=== PATIENT | female | born 1990 | race Caucasian/White ===

== ENCOUNTER 2018-12-02 07:46 | Inpatient (IN) | payer MEDICAID ==
[~2018-12-02] VITALS: Ht 147.3 cm; Wt 67.1 kg
[~2018-12-02 07:46] MED LIST: OXYTOCIN 30 UNITS/LR 500 ML BAG IV ONE; PREN-19 PO
[2018-12-02 08:10] VITALS: Ht 147.3 cm; Wt 67.1 kg
[2018-12-02 08:11] VITALS: BP 108/58; PULSE 111; RESP 18
[2018-12-02] MEDS ORDERED: LACTATED RINGER'S 1,000 ML IV SCH (08:25)
[2018-12-02] MEDS ORDERED: METHYLERGONOVINE 0.2 MG INJ IM PRN ×2 (08:30→18:00)
[2018-12-02] MEDS ORDERED: OXYTOCIN 30 UNITS/LR 500 ML IV PRN ×2 (08:30→18:00)
[2018-12-02] MEDS ORDERED: MISOPROSTOL 200 MCG TAB PR PRN ×2 (08:30→18:00)
[2018-12-02] MEDS ORDERED: OXYTOCIN 30 UNITS/LR 500 ML IV SCH ×2 (08:30→17:52)
[2018-12-02] MEDS ORDERED: CEFAZOLIN 2 GM/50 ML (PMX) 50 ML IVPB SCH (08:30)
[2018-12-02] MEDS ORDERED: CARBOPROST 250 MCG INJ IM PRN ×2 (08:30→18:00)
--- NOTE | 2018-12-02 08:32 | TRIAGE ---
OB Triage Datetime Report Generated by CPN: 12/02/2018 08:31 Datetime: 12/02/2018 08:05 Assessment Type: Triage Maternal Assessment Level of Consciousness: Fully Conscious DTR's/Clonus: DTRs 2+; No Clonus Headache: Denies Blurred Vision: No Respiratory Effort: Unlabored; Regular Rhythm; Equal Expansion Breath Sounds, Left: Clear and Equal Breath Sounds, Right: Clear and Equal Nausea/Vomiting: Denies RUQ Epigastric Pain: Denies Lower Extremities Edema: Bilateral Lower Extremities Degree: Trace Upper Extremities Edema: None Degree: None Facial Edema: None Fall Risk Assessment History of Falling: (0) No Secondary Diagnosis: (0) No Ambulatory Aid: (0) Bedrest/Nurse Assist IV Therapy: (0) No Gait: (0) Normal/Bedrest/Immobile Mental Status: (0) Oriented to Own Ability Fall Score: 0 Fall Risk Score Definition: No Risk: No action required Datetime: 12/02/2018 08:02 Time of Arrival: 12/02/2018 07:43 EGA: 39.1 Arrived By: Ambulatory Arrived From: Home Chief Complaint: PT HERE FOR EFW/MAYANK FOR POSSIBLE IUGR Movement: Present Contractions: Denies/Absent Rupture of Membranes: Denies Vaginal Bleeding: None Vaginal Discharge: Present Recent Sexual Intercouse: Denies Abdominal Trauma: Not Applicable Patient Complaints: None Time Provider Notified: 12/02/2018 08:15 Provider Notified: HADADIAN Initial Plan: NST/ Datetime: 12/02/2018 07:59 Monitor Mode: External Monitor Mode: External US Datetime: 11/25/2018 00:52 Labor Evaluation Frequency: x5 Monitor Mode: External Duration (sec)2399: 50-120 Quality: Mild Pattern: Normal: <= 5 Contractions in 10 Minutes Resting Tone [place]: Relaxed Heart Rate FHR Baseline Rate: 135 Monitor Mode: External US Variability: Moderate 6-25 bpm Accelerations: 15X15 Decelerations: None Category: Category I Datetime: 11/25/2018 00:00 Labor Evaluation Frequency: Irregular Monitor Mode: External Resting Tone [place]: Relaxed Heart Rate FHR Baseline Rate: 135 Monitor Mode: External US Variability: Moderate 6-25 bpm Accelerations: 15X15 Decelerations: None Category: Category I Datetime: 11/24/2018 23:00 Labor Evaluation Frequency: 2-7 Monitor Mode: External Duration (sec)2399: 50-100 Quality: Mild Pattern: Normal: <= 5 Contractions in 10 Minutes Resting Tone [place]: Relaxed Heart Rate FHR Baseline Rate: 135 Monitor Mode: External US Variability: Moderate 6-25 bpm Accelerations: 15X15 Decelerations: None Category: Category I Datetime: 11/24/2018 22:00 Labor Evaluation Frequency: Irregular Monitor Mode: External Resting Tone [place]: Relaxed Datetime: 11/24/2018 21:00 Labor Evaluation Frequency: Irregular Monitor Mode: External Resting Tone [place]: Relaxed Heart Rate FHR Baseline Rate: 135 Monitor Mode: External US Variability: Moderate 6-25 bpm Accelerations: Prolonged Decelerations: None Category: Category I Datetime: 11/24/2018 20:00 Labor Evaluation Frequency: 3-6 Monitor Mode: External Duration (sec)2399: 80-140 Quality: Mild Pattern: Normal: <= 5 Contractions in 10 Minutes Resting Tone [place]: Relaxed Heart Rate FHR Baseline Rate: 135 Monitor Mode: External US Variability: Moderate 6-25 bpm Accelerations: 15X15 Decelerations: None Category: Category I Datetime: 11/24/2018 18:36 EGA: 38.0 Datetime: 11/24/2018 18:25 Fall Score: 0 Fall Risk Score Definition: No Risk: No action required
--- NOTE | 2018-12-02 11:23 | PREAC ---
Date/Time of Note Date/Time of Note DATE: 12/02/18 TIME: 11:21 Anesthesia Eval and Record Evaluation Time Pre-Procedure Interview DATE: 12/02/18 TIME: 11:21 Age 28 Sex female NPO: 8 hrs Preoperative diagnosis IUP Planned procedure Csection Past Medical History Past Medical History: None Surgery & Anesthesia Issues No known issue Meds Anticoagulation: No Beta Eden within 24 hr: No Reason Beta Eden not given: Pt. not on B-Eden Reported Medications Vit #76/Iron,Carb/FA (Prenatabs Rx Tablet) 1 Each Tablet, 1 EACH PO, TAB 11/24/18 Current Medications Lactated Ringer's 1,000 ml @ 125 mls/hr Q8H IV Last administered on 12/02/18at 10:28; Admin Dose 125 MLS/HR; Start 12/02/18 at 08:25 Cefazolin Sodium/ Dextrose 50 ml @ 100 mls/hr ONCE IVPB ; Start 12/02/18 at 08:30 Oxytocin/Lactated Ringer's 500 ml @ 125 mls/hr POST IV ; Start 12/02/18 at 08:30 Oxytocin/Lactated Ringer's 500 ml @ 0 mls/hr ONCE PRN IV VAGINAL BLEEDING; Start 12/02/18 at 08:30 Methylergonovine Maleate (Methergine) 0.2 mg ONCE PRN IM VAGINAL BLEEDING; Start 12/02/18 at 08:30 Carboprost Tromethamine (Hemabate) 250 mcg ONCE PRN IM VAGINAL BLEEDING; Start 12/02/18 at 08:30 Misoprostol (Cytotec) 1,000 mcg ONCE PRN AK VAGINAL BLEEDING; Start 12/02/18 at 08:30 Meds reviewed: Yes Allergies Coded Allergies: No Known Allergy (Unverified , 11/24/18) Allergies Reviewed: Yes Labs/Studies Labs Reviewed: Reviewed by anesthesiologist Result Diagram: 12/02/18 0900 Laboratory Tests 12/02/18 09:00 Blood Bank Test 12/02/18 09:00 Antibody Screen NEGATIVE Blood Type O POSITIVE Rh Immune Globulin Candidate NO test: Positive Studies: ECG Pre-procedure Exam Last vitals Vital Signs Date Temp Pulse Resp B/P (MAP) Pulse Ox O2 O2 Flow FiO2 Time Delivery Rate 12/02/18 98.6 111 18 108/58 Room Air 08:11 (75) Airway: Adequate mouth opening, Adequate thyromental dist Mallampati: Mallampati II Teeth: Normal Lung: Normal Heart: Normal ASA Physical Status ASA physical status: 2 Emergency: None Planned Anesthetic Neuraxial: Epidural Planned Pain Management Sub-arachniod narcotics, Parenteral pain med Pre-operative Attestations Prior to commencing anesthesia and surgery, the patient was re-evaluated, there was verification of: *The patient's identity *The results of appropriate recent lab work and preoperative vital signs *The above evaluation not changing prior to induction *Anesthetic plan, risk benefits, alternative and complications discussed with patient/family; questions answered; patient/family understands, accepts and wishes to proceed. MIGUEL PALMER MD Dec 02, 2018 11:23
[2018-12-02] MEDS ORDERED: PHENYLephrine (100 MCG/ML) 10ML SYG ONE (12:16)
[2018-12-02] MEDS ORDERED: ONDANSETRON 4 MG INJ ONE (12:17)
[2018-12-02] MEDS ORDERED: OXYTOCIN 10 UNIT INJ ONE (12:17)
[2018-12-02] MEDS ORDERED: morphine SULFATE/PF (10 MG/10 ML) INJ ONE (12:17)
--- NOTE | 2018-12-02 12:42 | HP ---
Date/Time of Note Date/Time of Note DATE: 12/02/18 TIME: 12:34 OB - History Hx of Present Free Text/Dictation 28 years old with 2 previous delivery at 39 weeks and 1 day with a KRIS of 12/08/2018 complaining of uterine contractions. She is desiring a repeat delivery and permanent surgical sterilization. she states good movement. She denies nausea, vomiting, shortness of breath, chest pain, headache, visual changes, vaginal bleeding or LOF. Chief Complaint: Uterine contractions Last Menstrual Period: Mar 03, 2018 Estimated Due Date: Dec 08, 2018 : 3 Para: 2 Spontaneous : 0 Therapeutic : 0 Care: Limited Care Ultrasounds: Other (30 trimester ultrasound) Obstetrical Complications: None Medical Complications: None Past Family/Social History * Past Medical, Surgical, Family and Obstetric Histories reviewed from chart. Blood Type: O+ Rubella: immune RPR/VDRL: Negative GBS Status: Negative HBsAG: Negative OB Admission Exam Vital Signs Vital Signs Vital Signs Date Temp Pulse Resp B/P (MAP) Pulse Ox O2 O2 Flow FiO2 Time Delivery Rate 12/02/18 98.6 111 18 108/58 Room Air 08:11 (75) Physical Exam HEENT: WNL Heart: Rhythm Normal Lungs: Clear Abdomen: WNL Extremities: Normal Cervical Dilatation: 1cm Effacement: 75% Station: -2 Membranes: Intact Heart Rate: 140's Accelerations: Accelerations Present Decelerations: No Decelerations Varibility: Moderate Contractions on Admission: < 5 Minutes Apart Intensity: Moderate Last 72 hours Lab Results CBC & BMP 12/02/18 09:00 OB Assessment/Plan Other plan: 28 years old 3 para 2002 with 2 previous delivery at 39 weeks and 1 day in early labor desiring repeat delivery and bilateral tubal ligation. - FHR: No sign of metabolic acidosis- Category I - Continuous EFM, toco - CBC, blood type and screen - Please see the orders - O+/Rubella: Immune - GBS: negative The risk of delivery including but not limited to bleeding, infection, injury to other organs (bowel, bladder, ureter, vessels, nerves), injury to fetus, blood transfusion, blood transfusion related infection, risk of anesthesia, adhesion, needs for future , removal of uterus or any other indicated surgery, permanent surgical sterilization, other contraceptive options including IUD, increased risk of ectopic if failure of procedure occurs was discussed with the patient and her family. She expressed understanding. All of her questions were answered. She signed the informed consent. PHYSICIAN'S VERIFICATION OF INFORMED CONSENT The patient was counseled regarding the procedure, its indications, risks, potential complications and alternatives and any questions were answered. Consent was obtained. PLANNED PROCEDURE/TREATMENT: delivery with possible using vacuum/forceps, bilateral tubal ligation/bilateral salpingectomy and any other indicated surgery PHYSICIAN'S VERIFICATION OF INFORMED CONSENT FOR BLOOD TRANSFUSION: There is a reasonable possibility that blood transfusion will be necessary as a result of the patient's procedure. I have discussed the following with the patient/patient's legal it sales representative: An explanation of the benefits and risks of the transfusion of blood or blood products and the possible alternatives. All questions have been answered to the patient's satisfaction. INFORMED CONSENT:The patient has been informed of: The nature of the proposed care, treatment, services, medications, interventions or procedures. Potential benefits, risks or side effects, including potential problems related to recuperation. The likelihood of achieving care treatment and service goals. Reasonable alternatives to the proposed care, treatment and service. The relevant risks, benefits and side effects related to alternatives, including the possible results of not receiving care, treatment and services. When indicated, any limitations on the confidentiality of information learned from or about the patient. If appropriate, the risks, benefits and alternatives of the drugs to be used for sedation/analgesia including moderate sedation. If appropriate, patient has been provided information on the risks, benefits and alternatives to the transfusion of blood and/or blood products. If appropriate, patient has been provided information regarding the [place] [place] Blood Act. NHUNG LOPEZ Dec 02, 2018 12:42
[2018-12-02] MEDS ORDERED: DIPHENHYDRAMINE 50 MG INJ ONE (13:56)
--- NOTE | 2018-12-02 14:10 | PAC ---
Date/Time of Note Date/Time of Note DATE: 12/02/18 TIME: 14:09 Post-Anesthesia Notes Post-Anesthesia Note Last documented vital signs Vital Signs Date Temp Pulse Resp B/P (MAP) Pulse Ox O2 O2 Flow FiO2 Time Delivery Rate 12/02/18 98.6 111 18 108/58 Room Air 08:11 (75) Activity: WNL Respiratory function: WNL Cardiovascular function: WNL Mental status: Baseline Pain reasonably controlled: Yes Hydration appropriate: Yes Nausea/Vomiting absent: Yes Comments BP:108/68, pulse:78, spo2:100%, T:98,8 MIGUEL PALMER MD Dec 02, 2018 14:10
[2018-12-02] MEDS ORDERED: ONDANSETRON 4 MG INJ IV PRN (14:30)
[2018-12-02] MEDS ORDERED: NALOXONE (0.4 MG/ML) INJ IV PRN (14:30)
[2018-12-02] MEDS ORDERED: KETOROLAC 30 MG INJ IV PRN (14:30)
[2018-12-02] MEDS ORDERED: morphine 2 MG INJ IV PRN (14:30)
[2018-12-02] MEDS ORDERED: METHYLERGONOVINE 0.2 MG TAB PO PRN (18:00)
[2018-12-02] MEDS ORDERED: LANOLIN HPA 1 PKT TOP PRN (18:00)
[2018-12-02 18:30] VITALS: BP 100/50; PULSE 85; RESP 18
[2018-12-02 18:54] VITALS: BP 103/56; PULSE 74; RESP 18
[2018-12-02 20:15] VITALS: BP 98/56; PULSE 73; RESP 18
[2018-12-02] MEDS: SENNA/DOCUSATE NA (8.6MG/50MG) TAB PO SCH (21:17)
[2018-12-02] MEDS: IBUPROFEN 800 MG TAB PO SCH (21:17)
[2018-12-02] MEDS: DEXTROSE 5%-LR 1,000 ML IV SCH (22:02)
[2018-12-03] VITALS: BP 100/51; PULSE 62; RESP 18
[2018-12-03] MEDS: DIPHENHYDRAMINE 50 MG INJ IV PRN ×2 (00:22→09:09)
--- NOTE | 2018-12-03 00:30 | OPR ---
Operative Report Planned Procedure Free Text/Dictation Late entry note. Delivery time13:01 Procedure date Dec 03, 2018 Procedure(s) 1. Repeat low transverse delivery 2. Bilateral tubal ligation-[place] procedure 3. Removal of left paratubal cyst 4. Lysis of adhesion Performed by see signature line Manufacturing Mechanic: JOSE JOHNSON MD Anesthesiologist: MIGUEL PALMER MD Pre-procedure diagnosis 28 years old with 2 previous delivery at 39 weeks and 1 day desiring repeat delivery and permanent surgical sterilization [id number] Anesthesia Type: [id number] spinal Post-Procedure Post-procedure diagnosis 1. 28 years old with 2 previous delivery at 39 weeks and 1 day desiring repeat delivery and permanent surgical sterilization 2. Multiple omental adhesion to the peritoneum. 3. Left paratubal cyst 4. 3 cm window at right side of lower uterine segment Findings 1. Normal uterus, except that there was a 3 cm window at the right side of lower uterine segment. Normal fallopian tubes and ovaries 2. Viable female in cephalic presentation. 8 at one minute and 9 in 5 minutes. Weight: 2855 g - 6 pound 5 ounces. Height 18.5 inches. Time of delivery: 13:01 3. Placenta with three vessel cord 4. Amniotic fluid - Clear Estimated Blood Loss: 500 - 600 mls Specimen(s) 1. Segment of left and right fallopian tube 2. Left paratubal cyst Grafts/Implant(s) none Complication(s) none Pt Condition post procedure: stable Disposition: PACU Procedure Description INDICATION AND HISTORY: A 28 years old with 2 previous delivery at 39 weeks and 1 day desiring repeat delivery and permanent surgical sterilization. The risk of delivery including but not limited to bleeding, infection, injury to other organs (bowel, bladder, ureter, vessels, nerves), injury to fetus, blood transfusion, blood transfusion related infection, risk of anesthesia, adhesion, needs for future , removal of uterus or any other indicated surgery, permanent surgical sterilization, other contraceptive options including IUD, increased risk of ectopic if failure of procedure occurs discussed with the patient and her family. She expressed understanding. All of her questions were answered. She signed the informed consent. DESCRIPTION OF OPERATION: The patient was taken to the operating room, where she was identified and the procedure was verified. The patient received two gram of Ancef 30 minutes prior to surgery. Spinal anesthesia was placed. The patient placed in the dorsal supine position with a left tilt. The heart rate was 130 bpm. The patient was then prepped and draped in the normal sterile fashion. A Pfan nenstiel skin incision was made and carried down to the fascia with knife. The fascia was incised in the midline and the fascial incision was carried laterally with Winkler scissors. The superior portion of the fascial incision was then grasped with Analilia clamps and tented up and dissected off the underlying rectus muscle with sharp dissection. The lower portion of the fascial incision was then made in a similar fashion. The rectus muscle was and the peritoneum was entered. There was multiple area of adhesion of omentum to peritoneum which was clamped cauterized and cut. The peritoneal incision was then stretched and an Mohsen retractor was inserted. As noted above there was a window at right side of lower uterine segment, an incision was made above the lower uterine segment in a transverse fashion with a knife and extended bluntly. The was delivered atraumatically in cephalic presentation with the above findings. The umbilical cord was clamped and cut. The neonatology resuscitation team was present and the baby was handed to them. A cord blood sample was obtained for further evaluation. The placenta and membrane, which appeared normal were Removed. The uterus was exteriorized and cleared of all clot and debris. The uterus was then closed in a two layer fashion with 0- Monocryl. At the time of closure, hemostasis was noted. Then the left fallopian tube was identified and was grasped using [place] clamp, segment of distal fallopian tube including fimbria was double ligated with O- plain, excised and sent to pathology. Same procedure repeated at the right side. Hemostasis of stump of both fallopian tube reassured.there was a 1 x 1.5 cm left paratubal tubal cyst which cauterized and cut. The gutters were irrigated. The peritoneum was reapproximated with 3-0 Vicryl. The muscle was reapproximated with 3-0 Vicryl. The fascia was approximated with 0-Vicryl in a running fashion. The subcutaneous tissue was re approximated with 3-0 vicryl. The skin was closed with 4-0 Monocryl. All instruments, sponges and needle counts were correct x3. The patient tolerated the procedure well. She transferred to the recovery room in stable condition. NHUNG LOPEZ Dec 03, 2018 00:29
[2018-12-03 03:50] VITALS: BP 91/50; RESP 18
[2018-12-03] MEDS: IBUPROFEN 800 MG TAB PO SCH ×3 (06:02→21:27)
[2018-12-03] MEDS: DEXTROSE 5%-LR 1,000 ML IV SCH ×3 (06:02→17:52)
[2018-12-03 08:15] VITALS: BP 94/49; PULSE 64; RESP 18
[2018-12-03] MEDS ORDERED: DIPHTH/TET/ACEL PERTUSS (ADULT) 0.5 ML VIAL IM* ONE (11:00)
[2018-12-03] MEDS ORDERED: HYDROCODONE/APAP (5/325) TAB NGT PRN (11:00)
--- NOTE | 2018-12-03 14:12 | PN ---
Date/Time of Note Date/Time of Note DATE: 12/03/18 TIME: 14:10 OB Subjective Subjective Subjective Patient has not passed flatus yet. Denies any nausea vomiting. Has not ambu lated yet. Is in bed. Has been tolerated clear liquid diet. Breast-feeding. Denies any complaint. OB Objective Objective Objective General appearance: Alert and oriented x4 does not appear to be in any acute distress Abdomen: Soft, appropriate tenderness in the incision. Incision: Clean dry and intact Lungs: Clear to auscultation bilaterally CV: RRR Extremities: No calf tenderness, no click no cord palpable Breast: No evidence of mastitis or fissure Laboratory Tests Test 12/02/18 08:25 12/02/18 09:00 12/03/18 06:37 12/03/18 07:22 Hepatitis B NEGATIVE Surface Antigen Hepatitis C NEGATIVE Antibody HIV (1&2) NEGATIVE Antibody White Blood 13.1 10^3/ul 12.2 10^3/ul Count Red Blood Count 3.95 10^6/ul 3.97 10^6/ul Hemoglobin 11.4 g/dl 11.4 g/dl Hematocrit 34.1 % 34.4 % Mean Corpuscular 86.3 fl 86.6 fl Volume Mean Corpuscular 28.9 pg 28.7 pg Hemoglobin Mean Corpuscular 33.4 g/dl 33.1 g/dl Hemoglobin Pebbles nt Red Cell 13.0 % 13.1 % Distribution Width Platelet Count 390 10^3/UL 374 10^3/UL Mean Platelet 9.5 fl 9.9 fl Volume Immature 0.700 % 0.700 % Granulocytes % Neutrophils % 67.7 % 69.5 % Lymphocytes % 19.6 % 18.1 % Monocytes % 8.1 % 8.8 % Eosinophils % 3.7 % 2.7 % Basophils % 0.2 % 0.2 % Nucleated Red 0.0 /100WBC 0.0 /100WBC Blood Cells % Immature 0.090 10^3/ul 0.080 10^3/ul Granulocytes # Neutrophils # 8.9 10^3/ul 8.5 10^3/ul Lymphocytes # 2.6 10^3/ul 2.2 10^3/ul Monocytes # 1.1 10^3/ul 1.1 10^3/ul Eosinophils # 0.5 10^3/ul 0.3 10^3/ul Basophils # 0.0 10^3/ul 0.0 10^3/ul Nucleated Red 0.0 10^3/ul 0.0 10^3/ul Blood Cells # Prothrombin Time 12.2 Sec Prothrombin Time 1.0 Ratio INR 0.89 International Normalized Ratio Activated 27.7 Sec Partial Thrombop last Time Rapid Plasma NONREACTIVE Reagin Lab Scanned REFERENCE Report LAB [id number] OB Assessment/Plan Other Assessment: Status post repeat section+ BTL Postoperative day #1 Doing well Leukocytosis, improving, likely reactive related to postop Encourage the patient ambulating. GHAZALA Asher Advance diet Incentive spirometer discussed Routine postop care NICOLE HERNANDEZ MD Dec 03, 2018 14:12
[2018-12-03] MEDS: SENNA/DOCUSATE NA (8.6MG/50MG) TAB PO SCH ×2 (14:56→21:27)
[2018-12-03] MEDS: HYDROCODONE/APAP (5/325) TAB GTB SCH ×2 (14:56→21:27)
[2018-12-03 15:30] VITALS: BP 99/63; PULSE 79; RESP 18
[2018-12-03 20:00] VITALS: BP 112/67; PULSE 77; RESP 16
[2018-12-04 04:00] VITALS: BP 102/61; PULSE 59; RESP 18
[2018-12-04] MEDS: IBUPROFEN 800 MG TAB PO SCH ×3 (05:48→21:33)
[2018-12-04] MEDS: HYDROCODONE/APAP (5/325) TAB GTB SCH ×3 (05:48→21:33)
[2018-12-04 08:15] VITALS: BP 105/53; PULSE 65; RESP 20
[2018-12-04] MEDS: SENNA/DOCUSATE NA (8.6MG/50MG) TAB PO SCH ×2 (09:04→20:36)
[2018-12-04 15:35] VITALS: BP 109/56; PULSE 67; RESP 20
[2018-12-04 20:00] VITALS: BP 107/72; PULSE 70; RESP 18
--- NOTE | 2018-12-04 23:55 | PN ---
Date/Time of Note Date/Time of Note DATE: 12/04/18 TIME: 23:50 OB Subjective Subjective Subjective POD#2 Patient is doing well. She denies nausea, vomiting, shortness of breath, chest pain, headache. She has been ambulating without difficulty, tolerating regular diet. Pain is well controlled on current medications OB Objective Objective Objective General: AAO X 3, comfortable, NAD, appropriate mood and affect. ABD: +BS. Soft, non-tender. Uterus 2 cm below umbilicus Incision: Clear, dry, intact. No erythema, drainage or induration. Flank: No CVA tenderness (B/L) LE: Mild edema. No clubbing, cyanosis, thigh or calf tenderness (B/L). Homans 'sign is negative OB Assessment/Plan Other plan: 28 years old 003 s/p repeat delivery and bilateral tubal ligation. POD#2 - AF, VSS - Contraception methods with R/B/A/FR discussed - Continue care - Discharge home tomorrow - Rx and instruction given - Follow up in one and 6 weeks HNUNG LOPEZ Dec 04, 2018 23:55
[2018-12-05 03:40] VITALS: BP 99/51; PULSE 57; RESP 18
[2018-12-05] MEDS: HYDROCODONE/APAP (5/325) TAB GTB SCH ×2 (05:40→10:46)
[2018-12-05] MEDS: IBUPROFEN 800 MG TAB PO SCH (05:40)
[2018-12-05 08:00] VITALS: BP 99/65; PULSE 64; RESP 18
[2018-12-05] MEDS ORDERED: MEASLES,MUMPS,RUBELLA VACCINE INJ SC* ONE (09:00)
[2018-12-05] MEDS ORDERED: DIPHTH/TET/ACEL PERTUSS (ADULT) 0.5 ML VIAL IM* ONE (09:00)
[2018-12-05] MEDS: SENNA/DOCUSATE NA (8.6MG/50MG) TAB PO SCH (10:39)
--- NOTE | 2018-12-05 12:34 | DS ---
Date/Time of Note Date/Time of Note DATE: 12/05/18 TIME: 12:31 Obstetrical Discharge Record Final Diagnosis Final Diagnosis: Term delivered Other Final Diagnosis 28 years old 003 s/p repeat delivery and bilateral tubal ligation. POD#3. Her course was unremarkable. She is ambulating and tolerating regular diet. She is voiding without difficulty. Pain is well controlled on current medication. - AF, VSS - Continue care - Discharge home - Rx and instruction given - Follow up in one and 6 weeks Section Section: Repeat Condition on Discharge Physical Assessment Last Vitals: Vital Signs Date Temp Pulse Resp B/P (MAP) Pulse Ox O2 O2 Flow FiO2 Time Delivery Rate 12/05/18 98.1 64 18 99/65 (76) Room Air 08:00 12/03/18 95 00:00 Voiding: Yes Bowel Movement: Yes Breast: Soft, non-tender Fundus: Firm Calf Tenderness: No Patient Condition: Stable NHUNG LOPEZ Dec 05, 2018 12:34
== END 2018-12-05 14:10 | disposition home or self-care (01) | DRG 785 ==
LOC: OBT 07:46 → L-D 07:50 → OBT 08:15 → L-D 12:20 → PP1 18:04
PROVIDERS: ADMIT Obstetrics & Gynecology; ATTEND Obstetrics & Gynecology
PROC: 10D00Z1 Extraction of Products of Conception, Low, Open Approach (ICD-10-PCS; principal; 2018-12-03)
PROC: 0UB70ZZ Excision of Bilateral Fallopian Tubes, Open Approach (ICD-10-PCS; 2018-12-03)
PROC: 0UB60ZZ Excision of Left Fallopian Tube, Open Approach (ICD-10-PCS; 2018-12-03)
PROC: 0DNU0ZZ Release Omentum, Open Approach (ICD-10-PCS; 2018-12-03)
DX: O34.219 Maternal care for unspecified type scar from previous cesarean delivery (principal); O75.89 Other specified complications of labor and delivery; N83.8 Other noninflammatory disorders of ovary, fallopian tube and broad ligament; O99.62 Diseases of the digestive system complicating childbirth; K66.0 Peritoneal adhesions (postprocedural) (postinfection); Z3A.39 39 weeks gestation of pregnancy; Z37.0 Single live birth; Z30.2 Encounter for sterilization
CPT/HCPCS: 85025; 85610; 85730; 86592; 86703; 86803; 86850; 86900; 86901; 87340; 88302; 88304; 90686; 90715; 99464; G0463; J0690; J1200; J1885; J2210; J2274; J2370; J2405; J2590; J7120; J7121